=== PATIENT | male | born 1960 | race Caucasian/White ===

== ENCOUNTER → 2022-11-21 | Outpatient (CLI) | payer MEDICARE ==
[~2022-11-21] MED LIST: BACTRIM DS 8001 TA1 PO; BLOOD PRESSURE PILL; KEFLEX500 MG PO; ULTRAM50 MG PO; VICODIN 5/500 505 MG PO
[2022-11-21 08:39] LABS: BASO # 0.1 10*3/uL (0.0-0.1); BASO % 0.5 % (0.0-1.0); EOS # 0.1 10*3/uL (0.0-0.4); EOS % 1.1 % (1.0-4.0); HEMATOCRIT 46.6 % (42.0-52.0); LYMPH # 1.7 10*3/uL (1.3-4.4); LYMPH % 17.5 % (27.0-41.0); MEAN CELL VOLUME 103.3 fl (80.0-94.0); MEAN CORPUSCULAR HGB 36.4 pg (27.0-31.0); MEAN CORPUSCULAR HGB CONC 35.2 g/dl (33.0-37.0); MEAN PLATELET VOLUME 9.5 fl (9.6-12.3); MONO # 0.6 10*3/uL (0.1-1.0); NEUT # 7.4 10*3/uL (2.3-7.9); NEUT % 74.5 % (47.0-73.0); PLATELET COUNT AUTOMATED 216 10*3/uL (130-400); RED BLOOD COUNT 4.51 10*6/uL (4.50-5.90); RED CELL DISTRI WIDTH 13.2 % (0-14.5); WHITE BLOOD COUNT 9.9 10*3/uL (4.8-10.8)
== END | disposition home or self-care (01) ==
LOC: LAB 08:11
PROVIDERS: ATTEND Orthopaedic Surgery
DX: R53.83 Other fatigue (principal); M54.50 Low back pain, unspecified

== ENCOUNTER 2025-01-05 08:35 | Emergency (ER) | payer MEDICARE ==
[~2025-01-05] VITALS: Ht 172.7 cm; Wt 83.9 kg
[2025-01-05] MEDS ORDERED: LISINOPRIL10 M1 PO (08:48)
[2025-01-05] MEDS ORDERED: PRAVASTATIN SOD20 MG PO (08:48)
[2025-01-05] MEDS ORDERED: AMLODIPINE BESY10 MG PO (08:48)
[2025-01-05] MEDS ORDERED: Ketorolac Tromethamine 30 MG/ML VIAL IV ONE (09:05)
[2025-01-05 09:19] LABS: BASO # 0.1 10*3/uL (0.0-0.1); BASO % 0.7 % (0.0-1.0); EOS # 0.2 10*3/uL (0.0-0.4); EOS % 2.3 % (1.0-4.0); HEMATOCRIT 48.1 % (42.0-52.0); MEAN CORPUSCULAR HGB 33.5 pg (27.0-31.0); MEAN CORPUSCULAR HGB CONC 33.5 g/dl (33.0-37.0); MONO # 0.9 10*3/uL (0.1-1.0); MONO % 11.8 % (3.0-9.0); NEUT # 4.4 10*3/uL (2.3-7.9); NEUT % 57.1 % (47.0-73.0); PLATELET COUNT AUTOMATED 207 10*3/uL (130-400); RED BLOOD COUNT 4.81 10*6/uL (4.50-5.90); RED CELL DISTRI WIDTH 12.3 % (0-14.5); WHITE BLOOD COUNT 7.7 10*3/uL (4.8-10.8)
[2025-01-05 09:40] LABS: ALKALINE PHOSPHATASE 69 U/L (46-116); BUN 7 mg/dl (9-23); CHLORIDE 106 mmol/L (98-107); LIPASE 35 U/L (12-53); POTASSIUM 3.8 mmol/L (3.4-5.1); SGPT/ALT 16 U/L (5-49); TOTAL PROTEIN 7.3 gm/dL (6.0-8.0)
[2025-01-05 09:42] LABS: BILIRUBIN Negative (Negative); BLOOD Negative (Negative); CLARITY Clear (Clear); COLOR Yellow (Yellow); GLUCOSE Negative (Negative); KETONE Negative (Negative); LEUKO ESTERASE Negative (Negative); NITRITE Negative (Negative); SPECIFIC GRAVITY <= 1.005 (1.001-1.030); UROBILINOGEN 0.2 E.U./dl (0.0-1.0)
[2025-01-05 09:52] LABS: EPITHELIAL CELLS 0-2; RBC 0-2 rbc/hpf (0-2)
[2025-01-05] MEDS ORDERED: CYCLOBENZAPRINE5 M3 PO (10:41)
[2025-01-05] MEDS ORDERED: NAPROSYN500 MG PO (10:41)
== END 2025-01-05 10:45 | disposition home or self-care (01) ==
LOC: ED 08:35
PROVIDERS: Physician Assistant Medical
DX: M54.9 Dorsalgia, unspecified (principal); R10.31 Right lower quadrant pain; I10 Essential (primary) hypertension